=== PATIENT | male | born 1980 | race Caucasian/White ===

== ENCOUNTER 2024-04-20 11:14 | Emergency (ER) | payer OTHER ==
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
[2024-04-20 11:32] VITALS: TEMP 97
[2024-04-20] MEDS ORDERED: MOTRIN 600 MG ONE (12:16)
[2024-04-20] MEDS ORDERED: NORCO 5/325 MG ONE (12:16)
[2024-04-20] MEDS: NORCO 5/325 MG PO ONE (12:18)
[2024-04-20] MEDS: MOTRIN 600 MG PO ONE (12:19)
[2024-04-20 13:04] VITALS: BP 117/81; PULSE 63; RESP 16; O2SAT 98
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
== END 2024-04-20 13:35 | disposition home or self-care (01) ==
LOC: ED 11:14
DX: S16.1XXA Strain of muscle, fascia and tendon at neck level, initial encounter (principal); S70.01XA Contusion of right hip, initial encounter; S70.11XA Contusion of right thigh, initial encounter; V23.49XA Other motorcycle driver injured in collision with car, pick-up truck or van in traffic accident, initial encounter; R51.9 Headache, unspecified; Z79.891 Long term (current) use of opiate analgesic; Z72.0 Tobacco use
CPT/HCPCS: 70450; 72125; 73552; 73590; 99285; A9270-GY